=== PATIENT | male | born 1955 | race Caucasian/White ===

== ENCOUNTER → 2017-06-11 | Outpatient (CLI) | payer MEDICAID ==
[~2017-06-11] MED LIST: B/P MEDICATION; NAPROSYN-EC500 M1 DOB; NO MEDICATIONS; PERCOCET5/325 PO; PROAIR HFA8.5 GM INH
--- NOTE | ~2017-06-11 | US128 ---
[id number] [address] [address] [id number] O MR#: [id number] Acc #: [id number] NAME: LICHA VEGA : 1955 SEX: M STUDY DATE/TIME: 06/11/2017 11:18 UNIT: [facility] ROOM: STUDY DESCRIPTION: Thyroid Attending Physician: Shoa Acosta A.P.R.N. Referring Physician: Soha Acosta A.P.R.N. Ordering Physician: Soha Acosta A.P.R.N. Primary Care Physician: Alexandra Kay M.D. MEDICAL IMAGING REPORT This report is preliminary unless electronic signature is present. EXAM Ultrasound of the thyroid gland INDICATIONS Hyperthyroidism. Patient has an abnormal TSH. TECHNIQUE Lutz-scale and color Doppler sonographic images were obtained through the thyroid gland. FINDINGS Right lobe measures 2.5 x 2.8 x 5.1 cm; left lobe measures 1.7 x 2.4 x 4.7 cm. Isthmus measures about 2 mm in thickness. There is a tiny hypoechoic nodule seen within the superior pole of the right lobe of the thyroid gland measuring 4 x 5 x 5 mm. It does show some internal color Doppler flow. No additional thyroid nodules are seen IMPRESSION 1. Thyromegaly. 2. Small hypoechoic nodule seen within the superior pole of the right lobe of the thyroid gland measuring 4 x 5 x 5 mm. Short-term sonographic followup in 6 months is suggested to document continuing stability. Dictated by... Adelia Malagon M.D. THIS IS AN ELECTRONICALLY VERIFIED REPORT Adelia Malagon M.D. at 06/12/2017 4:47 PM AFF/to TD: 06/11/2017 21:45 JOB #: [id number] MEDICAL IMAGING REPORT Page 1 of 1
== END | disposition home or self-care (01) ==
LOC: SGUS 09:55
DX: R94.6 Abnormal results of thyroid function studies (principal); E04.1 Nontoxic single thyroid nodule
CPT/HCPCS: 76536